=== PATIENT | female | born 1985 | race Caucasian/White ===

== ENCOUNTER 2021-10-05 21:28 | Emergency (ER) | payer OTHER ==
[2021-10-05 21:44] VITALS: BP 137/85; PULSE 95; TEMP 98.2; BMI 29.2
[2021-10-05 22:39] LABS: BASO % 0.9 % (0-2.0); EOS % 5.1 % (0-4.5); HEMATOCRIT 38.1 % (32.4-45.2); HEMOGLOBIN 12.7 GM/dL (10.7-15.3); LYMPH % 24.7 % (8-40); MCH 30.8 pg (25.7-33.7); MCHC 33.4 g/dl (32.0-36.0); MEAN CELL VOLUME 92.2 fl (80-96); MEAN PLT VOLUME 7.2 fl (7.5-11.1); MONO % 6.5 % (3.8-10.2); NEUT % 62.8 % (42.8-82.8); PLATELET COUNT 407 10^3/uL (134-434); RBC 4.13 M/mm3 (3.60-5.2); RDW 14.6 % (11.6-15.6); WHITE BLOOD COUNT 13.6 K/mm3 (4.0-10.0)
[2021-10-05 22:47] LABS: EPI CELLS 13 /uL (0-25.1); HYALINE CASTS 1 /uL (0-3.1); URINE APPEARANCE CLOUDY; URINE BACTERIA 500 /uL (0-1359); URINE BILIRUBIN NEGATIVE (NEGATIVE); URINE COLOR YELLOW; URINE GLUCOSE (UA) NEGATIVE (NEGATIVE); URINE KETONE TRACE (NEGATIVE); URINE LEUK ESTERASE 1+ (NEGATIVE); URINE NITRITE NEGATIVE (NEGATIVE); URINE PROTEIN 3+ (NEGATIVE); URINE RBC 3489 /uL (0-23.9); URINE WBC 1693 /uL (0-25.8)
[2021-10-05 23:02] LABS: ALBUMIN 3.8 g/dl (3.4-5.0); BLOOD UREA NITROGEN 14.2 mg/dL (7-18); CALCIUM 8.8 mg/dL (8.5-10.1)
[2021-10-05 23:06] LABS: CREATININE 0.9 mg/dL (0.55-1.3)
[2021-10-05 23:07] LABS: BILIRUBIN,TOTAL 0.3 mg/dL (0.2-1); TOT PROT 6.9 g/dl (6.4-8.2)
== END 2021-10-06 00:04 | disposition home or self-care (01) ==
LOC: JER 21:28
DX: N10 Acute pyelonephritis (principal)
CPT/HCPCS: 36415; 76775-TC; 80053; 81003; 84703; 85025; 87086; 87186; 99284-25